=== PATIENT | female | born 1960 | race Caucasian/White ===

== ENCOUNTER 2017-03-14 12:29 | Emergency (ER) | payer BC, OTHER ==
--- NOTE | 2017-03-14 15:07 | RAD ---
HISTORY: Left shoulder pain COMPARISONS: None VIEWS: 4, Frontal internal rotation, external rotation, outlet, and axillary views of the left shoulder FINDINGS: BONE DENSITY: Normal. BONES: There is no displaced fracture. JOINTS: There is no arthropathy. ALIGNMENT: There is no dislocation. SOFT TISSUES: Unremarkable. OTHER FINDINGS: None. IMPRESSION: NO ACUTE OSSEOUS INJURY. IF SYMPTOMS PERSIST, RECOMMEND REPEAT IMAGING.
--- NOTE | 2017-03-14 15:08 | RAD ---
HISTORY: Left shoulder pain COMPARISONS: None VIEWS: 3, Frontal and oblique views of the left hemithorax. FINDINGS: There is no displaced rib fracture or pneumothorax. The visualized lungs are clear. IMPRESSION: NO DISPLACED RIB FRACTURE OR PNEUMOTHORAX. IF THERE IS PERSISTENT CLINICAL CONCERN FOR OSSEOUS PATHOLOGY OF THE RIBS, BONE SCANNING MAY BE MORE SENSITIVE.
--- NOTE | 2017-03-14 15:08 | RAD ---
HISTORY: Shoulder pain COMPARISONS: None VIEWS: 4: Frontal dual-energy and lateral views of the chest. FINDINGS: CARDIOMEDIASTINAL SILHOUETTE: The cardiomediastinal silhouette is normal. AMEENA: The ameena are normal. PLEURA: The costophrenic angles are sharp. No pleural abnormalities are noted. LUNG PARENCHYMA: The lungs are clear. ABDOMEN: The upper abdomen is clear. There is no subphrenic gas. BONES AND SOFT TISSUES: No bone or soft tissue abnormalities are noted. OTHER: None. IMPRESSION: NO ACTIVE CARDIOPULMONARY DISEASE.
[2017-03-14 15:21] VITALS: BP 138/59
[2017-03-14] MEDS ORDERED: Ketorolac INJ* 60 MG/2 ML VIAL IM ONE (15:48)
--- NOTE | 2017-03-14 16:03 | UC ---
Shoulder Pain HPI - HPI Summary HPI Summary: THREE DAYS OF LEFT SHOULDER PAIN; PAIN WITH TOUCH AND WITH MOVEMENT. NO CHEST PAIN CURRENTLY, NO ABDOMINAL PAIN. NO RASHES. NO FEVER. NO SEVERE TRAUMA, HAD BEEN VERY ACTIVE RAKING LEAVES TWO DAYS PRIOR TO SYMPTOMS. TWO DAYS AGO HAD SOME DIZZINESS AFTER THE PAIN WHILE WALKING AROUND MALL AND TRYING TO LIFT. NO LOC. NO SOB. NO JAW PAIN. DIZZINESS SYMPTOMS RESOLVED 20MINUTES AFTER OCCURRENCE AND HAVE NOT RETURNED. - History of Current Complaint Chief Complaint: UCUpperExtremity Stated Complaint: LEFT SHOULDER PAIN Time Seen by Provider: 03/14/17 14:09 Hx Obtained From: Patient Hx Last Menstrual Period: October 2016 Onset/Duration: Gradual Onset, Lasting Days, Still Present Timing: Days Severity Initially: Moderate Severity Currently: Moderate Location Of Pain: Is Discrete @ - LEFT SHOULDER SUPERIOR SCAPULA, Radiates To - LEFT AXILLA Character: Dull, Aching, Spasmodic Aggravating Factor(s): Movement, Lifting, Flexion, External Rotation Alleviating Factor(s): OTC Meds Associated Signs And Symptoms: Negative: Numbness/Tingling - Risk Factors Non-Orthopedic Risk Factor: Negative DVT Risk Factors: Negative Septic Arthritis Risk Factor: Negative - Allergies/Home Medications Allergies/Adverse Reactions: Allergies Allergy/AdvReac Type Severity Reaction Status Date / Time No Known Allergies Allergy Verified 03/14/17 13:32 Home Medications: Home Medications Acetaminophen TAB* [Tylenol TAB*] 1,000 mg PO ONCE PRN 03/14/17 [History Confirmed 03/14/17] Naproxen TAB* [Naprosyn 375 mg TAB*] 375 mg PO ONCE PRN 03/14/17 [History Confirmed 03/14/17] PMH/Surg Hx/FS Hx/Imm Hx Previously Healthy: Yes - Surgical History Surgical History: Yes Surgery Procedure, Year, and Place: x4, right foot surgery - Family History Known Family History: Positive: Other - ARTHRITIS - Social History Occupation: Employed Full-time Lives: With Family Alcohol Use: None Substance Use Type: None Smoking Status (MU): Former Smoker Type: Cigarettes Have You Smoked in the Last Year: No - Immunization History Most Recent Influenza Vaccination: 03/2013 Review of Systems Constitutional: Negative Skin: Negative Eyes: Negative ENT: Negative Respiratory: Negative Cardiovascular: Negative Gastrointestinal: Negative Genitourinary: Negative Motor: Negative Neurovascular: Negative Musculoskeletal: Arthralgia, Decreased ROM - LEFT, Myalgia Neurological: Negative Psychological: Negative All Other Systems Reviewed And Are Negative: Yes Physical Exam Triage Information Reviewed: Yes Appearance: Well-Appearing, Well-Nourished, Pain Distress Vital Signs: Initial Vital Signs Temp 99.0 F 03/14/17 13:34 Pulse 74 03/14/17 13:34 Resp 16 03/14/17 13:34 BP 137/57 03/14/17 13:34 Pulse Ox 100 03/14/17 13:34 Vital Signs Reviewed: Yes Eye Exam: Normal ENT Exam: Normal ENT: Positive: Normal ENT inspection Dental Exam: Normal Neck exam: Normal Neck: Positive: Supple, Nontender, No Lymphadenopathy Respiratory Exam: Normal Respiratory: Positive: Chest non-tender, Lungs clear, Normal breath sounds, No respiratory distress, No accessory muscle use Cardiovascular Exam: Normal Cardiovascular: Positive: RRR, No Murmur, Pulses Normal Abdominal Exam: Normal Abdomen Description: Positive: Nontender, No Organomegaly Musculoskeletal: Positive: No Edema, Strength Limited @ - LEFT SHOUDLER, ROM Limited @ - LEFT SHOUDLER Neurological Exam: Normal Psychological Exam: Normal Skin Exam: Normal Shoulder Course/Dx - Differential Dx/Diagnosis Differential Diagnosis/HQI/PQRI: Arthritis, Bursitis, Fracture (Closed), Sprain , Strain Provider Diagnoses: LEFT SHOULDER PAIN/ARTHRITIS; LEFT SUPERIOR SCAPULA MUSCLE SPASM. Discharge - Discharge Plan Condition: Stable Disposition: HOME Prescriptions: Metaxalone TAB* [Skelaxin TAB*] 800 mg PO TID #15 tab Patient Education Materials: Shoulder Pain (ED) Referrals: [facility] [Outside] Sánchez Jackson MD [Medical Doctor] - No Primary Care Phys,NOPCP [Primary Care Provider] - Additional Instructions: PHYSICAL THERAPY REFERRAL: You have been prescribed physical therapy. Treatments may include stretching, exercise, application of heat or cold, and other modalities. After an injury, PT can reduce swelling and pain. In recovery, PT is used to restore mobility and strength. Your specific treatment goals are: ____x_ Reduction of Swelling (EGS, US, ice as needed) __x___ Pain Reduction (EGS, US, ice as needed) ___x__ TENS Pack Fitting and Instruction Wound Hydrotherapy ____x_ Preservation of Mobility ___x__ Roman Catholic of Mobility ___x__ Strength Roman Catholic ____x_ Work or Sports Hardening This instruction sheet also serves as your PHYSICAL THERAPY REFERRAL! Please take it with you to the therapist, so he/she will be aware of your diagnosis and treatment plan. You may see the physical therapist of your choice for these treatments, but may wish to check with your insurance to be sure the provider you select is covered. It's important to see the doctor to whom you have been referred for follow up.
== END 2017-03-14 16:20 | disposition home or self-care (01) ==
LOC: UCCORT 12:29
DX: M25.512 Pain in left shoulder (principal); M19.012 Primary osteoarthritis, left shoulder; M62.838 Other muscle spasm; Z87.891 Personal history of nicotine dependence
CPT/HCPCS: 71020; 93005; 96372; 99202; G0463; J1885

== ENCOUNTER 2019-05-18 13:20 | Emergency (ER) | payer OTHER ==
[2019-05-18 14:09] VITALS: BP 148/69
--- NOTE | 2019-05-18 14:22 | UC ---
Skin Complaint HPI - HPI Summary HPI Summary: Pt presents with concern for Lyme disease. Pt states that over the last week she has been bitten frequently by ticks and has removed all of them. This morning she found an engorged tick right inner thigh. Pt states that she has been feeling flu like symptoms over the last 2 days. Including, body aches, MARK, and neck pain. - History of Current Complaint Chief Complaint: UCSkin Time Seen by Provider: 05/18/19 14:04 Stated Complaint: TICK BITE Hx Obtained From: Patient Hx Last Menstrual Period: October 2016 ?: No Onset/Duration: Sudden Onset, Lasting Days, Still Present Skin Exposure Onset/Duration: Days Ago Timing: Constant Onset Severity: Mild Current Severity: Mild Pain Intensity: 4 Location: Generalized Aggravating Factor(s): Nothing Alleviating Factor(s): Nothing Associated Signs & Symptoms: Positive: Chills Related History: Insect Bite/Sting - Allergy/Home Medications Allergies/Adverse Reactions: Allergies Allergy/AdvReac Type Severity Reaction Status Date / Time No Known Allergies Allergy Verified 05/18/19 14:08 PMH/Surg Hx/FS Hx/Imm Hx Previously Healthy: Yes - Surgical History Surgical History: Yes Surgery Procedure, Year, and Place: x4, right foot surgery - Family History Known Family History: Positive: Other - ARTHRITIS - Social History Occupation: Employed Full-time Lives: With Family Alcohol Use: None Substance Use Type: None Smoking Status (MU): Former Smoker Type: Cigarettes Have You Smoked in the Last Year: No - Immunization History Most Recent Influenza Vaccination: 03/2013 Vaccination Up to Date: Yes Review of Systems All Other Systems Reviewed And Are Negative: Yes Constitutional: Positive: Fever, Chills, Fatigue Skin: Positive: Negative Eyes: Positive: Negative ENT: Positive: Negative Respiratory: Positive: Negative Cardiovascular: Positive: Negative Gastrointestinal: Positive: Negative Genitourinary: Positive: Negative Motor: Positive: Negative Neurovascular: Positive: Negative Musculoskeletal: Positive: Myalgia Neurological: Positive: Headache Psychological: Positive: Negative Is Patient Immunocompromised?: No Physical Exam Triage Information Reviewed: Yes Appearance: Well-Appearing Vital Signs: Initial Vital Signs Temp 98.7 F 05/18/19 14:02 Pulse 80 05/18/19 14:02 Resp 16 05/18/19 14:02 BP 148/69 05/18/19 14:02 Pulse Ox 99 05/18/19 14:02 Vital Signs Reviewed: Yes Eye Exam: Normal ENT Exam: Normal Dental Exam: Normal Neck exam: Normal Respiratory Exam: Normal Cardiovascular Exam: Normal Musculoskeletal Exam: Normal Neurological Exam: Normal Psychological Exam: Normal Skin Exam: Normal Course/Dx - Course Course Of Treatment: at tick bite site, the area is mildly inflamed, has pustular center. mild tenderness to touch. - Differential Diagnoses - Skin Complaint Differential Diagnoses: Tick Born Illness - Diagnoses Provider Diagnosis: Tick bite of right thigh Discharge ED - Sign-Out/Discharge Documenting (check all that apply): Patient Departure All imaging exams completed and their final reports reviewed: No Studies - Discharge Plan Condition: Stable Disposition: HOME Prescriptions: DOXYcycline CAP(*) [DOXYcycline 100MG CAP(*)] 100 mg PO Q8H #20 cap Patient Education Materials: Insect Bite or Sting (ED) Referrals: Lupe Mcnamara DO [Primary Care Provider] - If Needed - Billing Disposition and Condition Condition: STABLE Disposition: Home
== END 2019-05-18 14:28 | disposition home or self-care (01) ==
LOC: UCCORT 13:20
DX: S70.361A Insect bite (nonvenomous), right thigh, initial encounter (principal); Z87.891 Personal history of nicotine dependence; W57.XXXA Bitten or stung by nonvenomous insect and other nonvenomous arthropods, initial encounter; Y92.9 Unspecified place or not applicable
CPT/HCPCS: 99212; G0463